=== PATIENT | female | born 1980 | race Caucasian/White ===

== ENCOUNTER 2021-07-16 21:30 | Emergency (ER) | payer MEDICARE, MEDICAID ==
[~2021-07-16] VITALS: Ht 154.9 cm; Wt 90.9 kg
[~2021-07-16 21:30] MED LIST: ALBU18HF2 INH; KEP500T PO; LEVO50TA PO; MORP30TA PO; MORP60CP14 PO; SUMA4PEN SQ; TRAZ-256 PO
[2021-07-17] MEDS ORDERED: diphenhydrAMINE 50 mg/ml inj IV ONE (02:00)
[2021-07-17] MEDS ORDERED: normal saline 1000ML IV soln IVB ONE (02:00)
[2021-07-17] MEDS ORDERED: dexamethasone sod phosphate 10mg/ml inj IV STA (02:00)
[2021-07-17] MEDS ORDERED: ketorolac tromethamine 15mg/ml inj. IV ONE (02:00)
[2021-07-17] MEDS ORDERED: SUMAtriptan succ. 6 MG/0.5ml vial SQ ONE (02:00)
[2021-07-17] MEDS ORDERED: SUMA25TA35 PO (02:55)
[2021-07-17] MEDS ORDERED: METO-292 PO (02:55)
[2021-07-17 03:40] VITALS: BP 113/67
== END 2021-07-17 03:41 | disposition home or self-care (01) ==
LOC: ER 21:31
DX: G43.909 Migraine, unspecified, not intractable, without status migrainosus (principal); R11.2 Nausea with vomiting, unspecified; J45.909 Unspecified asthma, uncomplicated; G89.29 Other chronic pain; F41.9 Anxiety disorder, unspecified; F32.9 Major depressive disorder, single episode, unspecified; Z86.69 Personal history of other diseases of the nervous system and sense organs; Z90.89 Acquired absence of other organs; Z90.49 Acquired absence of other specified parts of digestive tract; Z98.890 Other specified postprocedural states; Z60.2 Problems related to living alone; Z56.0 Unemployment, unspecified; Z88.8 Allergy status to other drugs, medicaments and biological substances; Z91.012 Allergy to eggs; Z79.899 Other long term (current) drug therapy
CPT/HCPCS: 96361; 96372; 96374; 96375; 99284; J1100; J1200; J1885; J7030; J3030

== ENCOUNTER 2021-07-27 18:22 | Emergency (ER) | payer MEDICARE, MEDICAID ==
[~2021-07-27] VITALS: Ht 154.9 cm; Wt 90.9 kg
[~2021-07-27 18:22] MED LIST changes: +METO-292 PO; +SUMA25TA35 PO
[2021-07-27] MEDS ORDERED: normal saline 1000ml 1,000 ML IV ONE ×2 (19:45)
[2021-07-27] MEDS ORDERED: LORazepam 2 mg/ml vial IV ONE (19:55)
[2021-07-27] MEDS ORDERED: ketorolac trometh. 30mg/ml inj. IV ONE (19:55)
[2021-07-27] MEDS ORDERED: morphine 4 MG/ML inj SYRINge IM ONE (20:25)
[2021-07-27] MEDS ORDERED: ondansetron 4mg rapidly disintigrating tab PO ONE (20:25)
[2021-07-27] MEDS ORDERED: dexamethasone sod phosphate 10mg/ml inj IV STA (21:13)
[2021-07-27] MEDS ORDERED: diazepam 5mg tablet PO ONE (22:20)
[2021-07-27] MEDS ORDERED: ORPH100T2 PO (22:20)
[2021-07-27 22:44] VITALS: BP 115/44
--- NOTE | 2021-07-27 22:57 | NUR ---
Pt given and understands d/c instructions. IV d/c'd, catheter was intact. Ambulatory with a slow steady gait.
== END 2021-07-27 22:45 | disposition home or self-care (01) ==
LOC: ER 18:22
DX: G44.209 Tension-type headache, unspecified, not intractable (principal); M54.2 Cervicalgia; R11.0 Nausea; G43.909 Migraine, unspecified, not intractable, without status migrainosus; G40.909 Epilepsy, unspecified, not intractable, without status epilepticus; J45.909 Unspecified asthma, uncomplicated; G89.29 Other chronic pain; Z90.49 Acquired absence of other specified parts of digestive tract; Z59.00 Homelessness unspecified; Z79.899 Other long term (current) drug therapy; Z91.012 Allergy to eggs; Z88.8 Allergy status to other drugs, medicaments and biological substances
CPT/HCPCS: 96361; 96372; 96374; 96375; 99284; J1100; J1885; J2060; J2270; J7030; 12013

== ENCOUNTER 2021-10-27 11:16 | Outpatient (CLI) | payer MEDICARE, MEDICAID ==
[~2021-10-27 11:16] MED LIST changes: +ORPH100T2 PO
[2021-10-27 12:43] LABS: BASOPHILS % (AUTO) 0.2 % (0-1); EOSINOPHILS # (AUTO) 0.1 X10'3 (0-0.9); EOSINOPHILS % (AUTO) 1.8 % (0-6); HEMATOCRIT 47.8 % (35.0-45.0); HEMOGLOBIN 15.9 g/dl (12.0-16.0); LYMPHOCYTES # (AUTO) 2.1 X10'3 (1.1-4.8); MEAN CORPUSCULAR HEMOGLOBIN 29.3 PG (27.0-31.0); MEAN CORPUSCULAR HGB CONC 33.3 g/dL (33.0-36.5); MEAN PLATELET VOLUME 8.5 FL (7.4-10.4); MONOCYTES # (AUTO) 0.5 X10'3 (0-0.9); MONOCYTES % (AUTO) 7.5 % (2-12); NEUTROPHILS # (AUTO) 4.4 X10'3 (1.8-7.7); NEUTROPHILS % (AUTO) 61.5 % (42-75); PLATELET COUNT 266 X10'3 (140-440); RED BLOOD COUNT 5.43 X10'6 (4.20-5.60); RED CELL DISTRIBUTION WIDTH 13.2 % (11.5-14.5); WHITE BLOOD COUNT 7.1 X10'3 (4.5-11.0)
[2021-10-27 13:07] LABS: ALANINE AMINOTRANSFERASE 43 U/L (12-78); ALBUMIN 3.9 G/DL (3.4-5.0); ALBUMIN/GLOBULIN RATIO 0.9 (1.1-1.5); ALKALINE PHOSPHATASE 120 IU/L (46-116); AMYLASE 54 U/L (25-115); ANION GAP 12 (8-16); BILIRUBIN,TOTAL 0.3 MG/DL (0.1-1.0); BLOOD UREA NITROGEN 15 MG/DL (7-18); BUN/CREATININE RATIO 23.8 (6.6-38.0); CALCIUM 8.9 MG/DL (8.5-10.1); CHLORIDE 104 MMOL/L (99-107); CHOL/HDL RATIO 3.4 (0.00-4.99); CHOLESTEROL 256 MG/DL (0-200); CREATININE 0.63 MG/DL (0.40-0.90); GLUCOSE 73 MG/DL (70-104); HDL CHOLESTEROL 75 MG/DL (35-60); LDL CHOLESTEROL 165 MG/DL (50-100); LIPASE 186 U/L (73-393); SODIUM 140 MMOL/L (135-145); TOTAL CARBON DIOXIDE 23.8 MMOL/L (24-32); TOTAL PROTEIN 8.1 G/DL (6.4-8.2); TRIGLYCERIDES 59 MG/DL (20-135); eGFR > 90 ML/MIN
[2021-10-27 13:08] LABS: ASPARTATE AMINO TRANSFERASE 40 U/L (10-37); POTASSIUM 4.8 MMOL/L (3.5-5.1)
[2021-10-27 13:10] LABS: HEMOGLOBIN A1C 5.9 % (4.5-6.2)
== END 2021-10-27 23:59 | disposition home or self-care (01) ==
LOC: LAB 11:16
PROVIDERS: ATTEND Family Medicine
DX: R10.13 Epigastric pain (principal); R73.9 Hyperglycemia, unspecified; E28.2 Polycystic ovarian syndrome; R53.83 Other fatigue; R56.9 Unspecified convulsions; Z51.81 Encounter for therapeutic drug level monitoring
CPT/HCPCS: 36415; 80053; 80061; 82150; 83036; 83690; 84443; 85025

== ENCOUNTER → 2022-06-12 | Emergency (ER) | payer MEDICARE, MEDICAID ==
[~2022-06-12] VITALS: Ht 154.9 cm; Wt 86.4 kg
[~2022-06-12] MED LIST changes: +LIDOcaine Viscous 15ml cup MM ONE; +SUCR1TAB34 PO; +mag hydrox/Alum hydrox/simeth 30ml oral suspension PO ONE; +morphine 4 MG/ML inj SYRINge IM ONE; +ondansetron 4mg rapidly disintigrating tab PO ONE; +sucralfate 1 gm tablet PO ONE
[2022-06-12 20:40] LABS: BASOPHILS % (AUTO) 0.4 % (0-1); EOSINOPHILS # (AUTO) 0.1 X10'3 (0-0.9); EOSINOPHILS % (AUTO) 1.2 % (0-6); HEMATOCRIT 43.2 % (35.0-45.0); HEMOGLOBIN 14.9 g/dl (12.0-16.0); LYMPHOCYTES % (AUTO) 26.1 % (21-51); MEAN CORPUSCULAR HEMOGLOBIN 29.2 PG (27.0-31.0); MEAN CORPUSCULAR HGB CONC 34.4 g/dL (33.0-36.5); MEAN CORPUSCULAR VOLUME 84.9 FL (78-98); MEAN PLATELET VOLUME 8.3 FL (7.4-10.4); MONOCYTES # (AUTO) 0.6 X10'3 (0-0.9); MONOCYTES % (AUTO) 5.5 % (2-12); NEUTROPHILS # (AUTO) 7.6 X10'3 (1.8-7.7); NEUTROPHILS % (AUTO) 66.8 % (42-75); PLATELET COUNT 259 X10'3 (140-440); RED BLOOD COUNT 5.09 X10'6 (4.20-5.60); RED CELL DISTRIBUTION WIDTH 13.2 % (11.5-14.5); WHITE BLOOD COUNT 11.3 X10'3 (4.5-11.0)
[2022-06-12 20:51] LABS: ALANINE AMINOTRANSFERASE 32 U/L (12-78); ALBUMIN 3.9 G/DL (3.4-5.0); ALKALINE PHOSPHATASE 104 IU/L (46-116); ANION GAP 11 (8-16); ASPARTATE AMINO TRANSFERASE 16 U/L (10-37); BILIRUBIN,TOTAL 0.4 MG/DL (0.1-1.0); BLOOD UREA NITROGEN 18 MG/DL (7-18); BUN/CREATININE RATIO 21.4 (6.6-38.0); CALCIUM 9.5 MG/DL (8.5-10.1); CHLORIDE 102 MMOL/L (99-107); CREATININE 0.84 MG/DL (0.40-0.90); GLUCOSE 79 MG/DL (70-104); LIPASE 160 U/L (73-393); POTASSIUM 3.9 MMOL/L (3.5-5.1); SODIUM 137 MMOL/L (135-145); TOTAL CARBON DIOXIDE 24.2 MMOL/L (24-32); eGFR 74 ML/MIN
[2022-06-12 20:54] LABS: CLARITY,URINE CLOUDY (Clear); COLOR,URINE YELLOW (Yellow); GLUCOSE, URINE NEGATIVE (Neg); KETONES,URINE NEGATIVE (Neg); LEUKOCYTE ESTERASE ,URINE SMALL (Neg); NITRITES, URINE NEGATIVE (Neg); OCCULT BLOOD,URINE SMALL (Neg); PH,URINE 5.5 (4.8-8.0); PROTEIN,URINE NEGATIVE (Neg); UROBILINOGEN,URINE 0.2 E.U/dL (0.2-1.0)
[2022-06-12 20:56] LABS: URINE HCG NEGATIVE (NEG)
[2022-06-12 21:12] LABS: UA COLLECTION TYPE VOIDED
[2022-06-12 21:14] LABS: BACTERIA,URINE 2+ /HPF (Neg); RBC,URINE 0-2 /HPF (0-2); SQUAMOUS EPITHELIAL CELL,UR MANY /LPF (FEW)
[2022-06-12 23:44] VITALS: BP 116/82
== END | disposition home or self-care (01) ==
LOC: ER 19:29
DX: R10.10 Upper abdominal pain, unspecified (principal); R11.0 Nausea; G43.909 Migraine, unspecified, not intractable, without status migrainosus; J45.909 Unspecified asthma, uncomplicated; F31.9 Bipolar disorder, unspecified; Z59.00 Homelessness unspecified; Z90.49 Acquired absence of other specified parts of digestive tract; Z88.8 Allergy status to other drugs, medicaments and biological substances; Z79.899 Other long term (current) drug therapy
CPT/HCPCS: 36415; 74176; 80053; 81001; 81025; 83690; 85025; 96372; 99284; J2270

== ENCOUNTER 2022-09-11 18:56 | Emergency (ER) | payer MEDICARE, MEDICAID ==
[~2022-09-11] VITALS: Ht 154.9 cm; Wt 89.9 kg
[~2022-09-11 18:56] MED LIST changes: -LIDOcaine Viscous 15ml cup MM ONE; -mag hydrox/Alum hydrox/simeth 30ml oral suspension PO ONE; -morphine 4 MG/ML inj SYRINge IM ONE; -ondansetron 4mg rapidly disintigrating tab PO ONE; -sucralfate 1 gm tablet PO ONE
[2022-09-11 20:00] LABS: BASOPHILS % (AUTO) 0.3 % (0-1); EOSINOPHILS # (AUTO) 0.4 X10'3 (0-0.9); HEMATOCRIT 42.4 % (35.0-45.0); HEMOGLOBIN 14.3 g/dl (12.0-16.0); LYMPHOCYTES % (AUTO) 33.7 % (21-51); MEAN CORPUSCULAR HEMOGLOBIN 28.9 PG (27.0-31.0); MEAN CORPUSCULAR HGB CONC 33.8 g/dL (33.0-36.5); MEAN CORPUSCULAR VOLUME 85.7 FL (78-98); MEAN PLATELET VOLUME 7.6 FL (7.4-10.4); MONOCYTES # (AUTO) 0.5 X10'3 (0-0.9); MONOCYTES % (AUTO) 8.3 % (2-12); NEUTROPHILS # (AUTO) 3.1 X10'3 (1.8-7.7); NEUTROPHILS % (AUTO) 51.7 % (42-75); PLATELET COUNT 257 X10'3 (140-440); RED BLOOD COUNT 4.94 X10'6 (4.20-5.60); RED CELL DISTRIBUTION WIDTH 12.5 % (11.5-14.5); WHITE BLOOD COUNT 6.1 X10'3 (4.5-11.0)
[2022-09-11 20:17] LABS: ALANINE AMINOTRANSFERASE 37 U/L (12-78); ALBUMIN 3.6 G/DL (3.4-5.0); ALBUMIN/GLOBULIN RATIO 0.8 (1.1-1.5); ALKALINE PHOSPHATASE 101 IU/L (46-116); ANION GAP 9 (8-16); ASPARTATE AMINO TRANSFERASE 18 U/L (10-37); BILIRUBIN,TOTAL 0.3 MG/DL (0.1-1.0); BLOOD UREA NITROGEN 15 MG/DL (7-18); CHLORIDE 100 MMOL/L (99-107); CREATININE 0.75 MG/DL (0.40-0.90); GLUCOSE 111 MG/DL (70-104); SODIUM 137 MMOL/L (135-145); TOTAL PROTEIN 7.9 G/DL (6.4-8.2); eGFR 84 ML/MIN
[2022-09-11] MEDS ORDERED: NIRM1TAB PO (20:50)
[2022-09-11 21:05] VITALS: BP 113/65
== END 2022-09-11 21:07 | disposition home or self-care (01) ==
LOC: ER 18:57
DX: U07.1 COVID-19 (principal); R07.89 Other chest pain; G43.909 Migraine, unspecified, not intractable, without status migrainosus; J45.909 Unspecified asthma, uncomplicated; G89.29 Other chronic pain; F41.9 Anxiety disorder, unspecified; F32.A Depression, unspecified; Z86.69 Personal history of other diseases of the nervous system and sense organs; Z90.89 Acquired absence of other organs; Z90.49 Acquired absence of other specified parts of digestive tract; Z98.890 Other specified postprocedural states; Z60.2 Problems related to living alone; Z56.0 Unemployment, unspecified; Z88.8 Allergy status to other drugs, medicaments and biological substances; Z79.899 Other long term (current) drug therapy
CPT/HCPCS: 36415; 71046; 80053; 85025; 87811; 93005; 99285

== ENCOUNTER 2023-01-03 16:46 | Emergency (ER) | payer MEDICARE, MEDICAID ==
[~2023-01-03] VITALS: Ht 154.9 cm; Wt 126.8 kg
[~2023-01-03 16:46] MED LIST changes: +NIRM1TAB PO; -ORPH100T2 PO; +ORPH100T4 PO
[2023-01-03 17:13] LABS: URINE HCG NEGATIVE (NEG)
[2023-01-03 17:14] LABS: CLARITY,URINE SLIGHTLY CLOUDY (Clear); COLOR,URINE YELLOW (Yellow); GLUCOSE, URINE NEGATIVE (Neg); KETONES,URINE NEGATIVE (Neg); LEUKOCYTE ESTERASE ,URINE NEGATIVE (Neg); NITRITES, URINE NEGATIVE (Neg); OCCULT BLOOD,URINE NEGATIVE (Neg); PH,URINE 5.5 (4.8-8.0); PROTEIN,URINE NEGATIVE (Neg); UROBILINOGEN,URINE 0.2 E.U/dL (0.2-1.0)
[2023-01-03 17:19] LABS: UA COLLECTION TYPE CLN CATCH MIDSTREAM
[2023-01-03 17:21] LABS: BACTERIA,URINE 3+ /HPF (Neg); RBC,URINE NONE SEEN /HPF (0-2); SQUAMOUS EPITHELIAL CELL,UR MODERATE /LPF (FEW)
[2023-01-03] MEDS ORDERED: ketorolac tromethamine 15mg/ml inj. IV ONE (17:30)
[2023-01-03] MEDS ORDERED: normal saline 1000ML IV soln IVB ONE (17:30)
[2023-01-03] MEDS ORDERED: ondansetron/PF 4mg/2ml inj IV ONE ×2 (17:30→19:55)
[2023-01-03] MEDS ORDERED: ketorolac trometh. 30mg/ml inj. IV ONE (17:30)
[2023-01-03 17:51] LABS: BASOPHILS % (AUTO) 0.1 % (0-1); EOSINOPHILS # (AUTO) 0.2 X10'3 (0-0.9); EOSINOPHILS % (AUTO) 2.9 % (0-6); HEMATOCRIT 41.2 % (35.0-45.0); HEMOGLOBIN 13.8 g/dl (12.0-16.0); LYMPHOCYTES # (AUTO) 0.6 X10'3 (1.1-4.8); LYMPHOCYTES % (AUTO) 7.6 % (21-51); MEAN CORPUSCULAR HEMOGLOBIN 28.3 PG (27.0-31.0); MEAN CORPUSCULAR HGB CONC 33.5 g/dL (33.0-36.5); MEAN CORPUSCULAR VOLUME 84.5 FL (78-98); MONOCYTES # (AUTO) 0.7 X10'3 (0-0.9); MONOCYTES % (AUTO) 8.2 % (2-12); NEUTROPHILS # (AUTO) 6.8 X10'3 (1.8-7.7); NEUTROPHILS % (AUTO) 81.2 % (42-75); PLATELET COUNT 222 X10'3 (140-440); RED BLOOD COUNT 4.88 X10'6 (4.20-5.60); RED CELL DISTRIBUTION WIDTH 13.4 % (11.5-14.5); WHITE BLOOD COUNT 8.4 X10'3 (4.5-11.0)
[2023-01-03 18:12] LABS: ALANINE AMINOTRANSFERASE 27 U/L (12-78); ALBUMIN 3.5 G/DL (3.4-5.0); ALBUMIN/GLOBULIN RATIO 0.9 (1.1-1.5); ALKALINE PHOSPHATASE 88 IU/L (46-116); ANION GAP 11 (8-16); ASPARTATE AMINO TRANSFERASE 20 U/L (10-37); BILIRUBIN,TOTAL 0.3 MG/DL (0.1-1.0); BLOOD UREA NITROGEN 22 MG/DL (7-18); BUN/CREATININE RATIO 27.2 (10.0-20.0); CHLORIDE 102 MMOL/L (99-107); CREATININE 0.81 MG/DL (0.40-0.90); GLUCOSE 121 MG/DL (70-104); LIPASE 216 U/L (73-393); POTASSIUM 4.2 MMOL/L (3.5-5.1); SODIUM 137 MMOL/L (135-145); TOTAL CARBON DIOXIDE 24.4 MMOL/L (24-32); TOTAL PROTEIN 7.3 G/DL (6.4-8.2); eGFR 77 ML/MIN
--- NOTE | 2023-01-03 18:38 | NUR ---
assumed care from corey perera
[2023-01-03] MEDS ORDERED: haloperidol lactate 5mg/ml inj IVH ONE (18:50)
[2023-01-03] MEDS ORDERED: ONDA4TAB12 PO (19:58)
[2023-01-03 20:56] VITALS: BP 145/80
== END 2023-01-03 20:58 | disposition home or self-care (01) ==
LOC: ER 16:47
DX: S20.102A Unspecified superficial injuries of breast, left breast, initial encounter (principal); S20.101A Unspecified superficial injuries of breast, right breast, initial encounter; R11.2 Nausea with vomiting, unspecified; R19.7 Diarrhea, unspecified; R61 Generalized hyperhidrosis; X58.XXXA Exposure to other specified factors, initial encounter; Y93.89 Activity, other specified; Y92.89 Other specified places as the place of occurrence of the external cause; Y99.8 Other external cause status
CPT/HCPCS: 36415; 80053; 81001; 81025; 83690; 85025; 87088; 96361; 96374; 96375; 96376; 99285; J1630; J1885; J2405; J7030

== ENCOUNTER 2024-11-19 23:16 | Emergency (ER) | payer MEDICARE, MEDICAID ==
[~2024-11-19] VITALS: Ht 154.9 cm; Wt 55.5 kg
[~2024-11-19 23:16] MED LIST changes: -ALBU18HF2 INH; -KEP500T PO; -LEVO50TA PO; -METO-292 PO; -MORP30TA PO; -MORP60CP14 PO; +MULT-1085 PO; +NALT50TA5 PO; -NIRM1TAB PO; +OMEP20CA15 PO; -ORPH100T4 PO; +QUET25TA36 PO; -SUCR1TAB34 PO; -SUMA25TA35 PO; -SUMA4PEN SQ; -TRAZ-256 PO
[2024-11-20 00:25] LABS: BILIRUBIN,URINE NEGATIVE (Neg); CLARITY,URINE CLOUDY (Clear); COLOR,URINE YELLOW (Yellow); GLUCOSE, URINE NEGATIVE (Neg); KETONES,URINE NEGATIVE (Neg); LEUKOCYTE ESTERASE ,URINE TRACE (Neg); NITRITES, URINE NEGATIVE (Neg); OCCULT BLOOD,URINE NEGATIVE (Neg); PH,URINE 5.5 (4.8-8.0); PROTEIN,URINE NEGATIVE (Neg); UROBILINOGEN,URINE 0.2 E.U/dL (0.2-1.0)
[2024-11-20 00:29] LABS: UA COLLECTION TYPE CLN CATCH MIDSTREAM
[2024-11-20 00:32] LABS: SQUAMOUS EPITHELIAL CELL,UR MANY /LPF (FEW)
[2024-11-20 00:33] LABS: BACTERIA,URINE 4+ /HPF (Neg); RBC,URINE NONE SEEN /HPF (0-2)
[2024-11-20 00:34] LABS: URINE HCG NEGATIVE (NEG)
[2024-11-20] MEDS: fentaNYL/PF 50MCG/1 ML 2ML syringe IV ONE (00:42)
[2024-11-20] MEDS: ondansetron/PF 4mg/2ml inj IV ONE ×2 (00:42→02:01)
[2024-11-20] MEDS: normal saline 1000ML IV soln IVB ONE (00:42)
[2024-11-20 00:54] LABS: URINE AMPHETAMINE SCREEN NEGATIVE (Neg); URINE BARBITUATE SCREEN NEGATIVE (Neg); URINE BENZODIAZEPINES SCREEN NEGATIVE (Neg); URINE CANNABINOID SCREEN NEGATIVE (Neg); URINE COCAINE SCREEN NEGATIVE (Neg); URINE METHADONE SCREEN NEGATIVE (Neg); URINE OPIATE SCREEN NEGATIVE (Neg); URINE PHENCYCLIDINE SCREEN NEGATIVE (Neg)
[2024-11-20 00:59] LABS: BASOPHILS % (AUTO) 0.2 % (0-1); EOSINOPHILS # (AUTO) 0.1 X10'3 (0-0.9); EOSINOPHILS % (AUTO) 1.3 % (0-6); HEMATOCRIT 39.9 % (35.0-45.0); HEMOGLOBIN 13.7 g/dl (12.0-16.0); LYMPHOCYTES # (AUTO) 2.3 X10'3 (1.1-4.8); LYMPHOCYTES % (AUTO) 33.3 % (21-51); MEAN CORPUSCULAR HGB CONC 34.3 g/dL (33.0-36.5); MEAN CORPUSCULAR VOLUME 84.6 FL (78-98); MEAN PLATELET VOLUME 8.2 FL (7.4-10.4); MONOCYTES # (AUTO) 0.6 X10'3 (0-0.9); MONOCYTES % (AUTO) 9.3 % (2-12); NEUTROPHILS # (AUTO) 3.9 X10'3 (1.8-7.7); NEUTROPHILS % (AUTO) 55.9 % (42-75); PLATELET COUNT 228 X10'3 (140-440); RED BLOOD COUNT 4.72 X10'6 (4.20-5.60); RED CELL DISTRIBUTION WIDTH 13.1 % (11.5-14.5)
[2024-11-20 01:04] LABS: ALANINE AMINOTRANSFERASE 21 U/L (12-78); ALBUMIN 3.6 G/DL (3.4-5.0); ALKALINE PHOSPHATASE 106 IU/L (46-116); ANION GAP 7 (8-16); ASPARTATE AMINO TRANSFERASE 12 U/L (10-37); BILIRUBIN,TOTAL 0.5 MG/DL (0.1-1.0); BLOOD UREA NITROGEN 18 MG/DL (7-18); BUN/CREATININE RATIO 29.5 (10.0-20.0); CALCIUM 8.5 MG/DL (8.5-10.1); CHLORIDE 107 MMOL/L (99-107); CREATININE 0.61 MG/DL (0.40-0.90); GLUCOSE 98 MG/DL (70-104); LIPASE 121 U/L (16-77); POTASSIUM 3.5 MMOL/L (3.5-5.1); SODIUM 140 MMOL/L (135-145); TOTAL CARBON DIOXIDE 26.3 MMOL/L (24-32); TOTAL PROTEIN 7.1 G/DL (6.4-8.2); eCRCL 88 ML/MIN; eGFR > 90 ML/MIN
[2024-11-20] MEDS: acetaminophen 1,000mg/100ml IV 100 ML IV ONE (02:04)
[2024-11-20] MEDS: normal saline 1000ml 1,000 ML IV ONE (02:40)
[2024-11-20 02:58] VITALS: BP 128/79; PULSE 75; RESP 18; O2SAT 96
[2024-11-20] MEDS ORDERED: ONDA-245 PO (03:38)
[2024-11-20] MEDS ORDERED: ACET-2615 PO (03:38)
[2024-11-20] MEDS: heparin sodium, porcine/PF 100unit/ml 5ML syringe IV ONE (03:49)
[2024-11-20 03:57] VITALS: TEMP 98
== END 2024-11-20 03:59 | disposition home or self-care (01) ==
LOC: ER 23:17
DX: K85.90 Acute pancreatitis without necrosis or infection, unspecified (principal); F17.200 Nicotine dependence, unspecified, uncomplicated; J45.909 Unspecified asthma, uncomplicated; F41.9 Anxiety disorder, unspecified; F32.A Depression, unspecified; G43.909 Migraine, unspecified, not intractable, without status migrainosus; Z90.49 Acquired absence of other specified parts of digestive tract; Z98.84 Bariatric surgery status; Z98.890 Other specified postprocedural states
CPT/HCPCS: 36415; 80053; 80305; 81001; 81025; 83690; 84145; 85025; 96361; 96365; 96375; 96376; 99284; J0131; J1642; J2405; J3010; J7030

== ENCOUNTER 2025-02-15 05:53 | Outpatient (CLI) | payer MEDICARE, MEDICAID ==
[~2025-02-15 05:53] MED LIST changes: +ONDA-245 PO
[2025-02-15] MEDS ORDERED: LIDOcaine 1% 30ml preserv. free vial ONE (06:41)
[2025-02-15] MEDS ORDERED: LIDOcaine 1%/PF 5ML 10 MG/ML VIAL ONE (06:41)
[2025-02-15] MEDS ORDERED: iohexol 300 MG/1 ML 50ml polymer ONE (06:41)
[2025-02-15] MEDS ORDERED: GADOTERATE MEGLUMINE 7.5 MMOL/15 ML VIAL IV ONE (06:42)
--- NOTE | 2025-02-15 11:24 | RADIOLOGY REPORT ---
ANGIO ARTHROGRAM (A) Date: 02/15/2025 07:34 AM Clinical History: PAIN IN right SHOULDER Comparison: None Procedure: Verbal and written informed consent were obtained from the patient for the procedure of right SHOULDE R JOINT fluoroscopically guided arthrogram, after the procedure, risks, and benefits of the procedur e were explained to the patient. Risks include bleeding, infection, reaction to injected medications , and damage to surrounding anatomic structures. The patient's questions were answered. The patient 's most recent medical history was reviewed. A time out was performed to verify the patient's name, date of , and correct location of the pro cedure, prior to initiation of the procedure. The patient tolerated the procedure well. There were no immediate complications. Home-care instruct ions were reviewed with the patient prior to the patient's discharge from the fluoroscopy suite. The patient verbally affirmed understanding of these instructions. Impression: Technically successful fluoroscopically guided right SHOULDER JOINT arthrogram. The patient was tra nsported to MRI for further imaging at the completion of the procedure. Procedure by Dr. Riddle
--- NOTE | 2025-02-15 18:39 | RADIOLOGY REPORT ---
EXAM: MR MRI UPPER EXTREMITY RIGHT INDICATION: PAIN IN RIGHT SHOULDER TECHNIQUE: Multiplanar, multisequence MR images of the right shoulder were obtained in the absence of gadolinium contrast material. COMPARISON: None FINDINGS: [CORACOACROMIAL ARCH]: Mild capsular hypertrophy of the acromioclavicular joint. Intact coracoclavicu lar ligaments. Intact coracoacromial ligaments. No subacromial/subdeltoid bursal fluid. [ROTATOR CUFF]: Question globular areas of T1/ low T2 signal of the distal supraspinatus tendon which may reflect sequelae of calcific tendonitis and/or sequelae of prior injury. Slight lateral acromial downsloping. Correlate for subacromial /subdeltoid impingement [BICEPS TENDON]: Intact without tenosynovitis. [LABRUM]: Intact. [CARTILAGE]: No measurable cartilage defect. [GLENOHUMERAL JOINT]: No intra-articular body. [BONES]: No acute fracture, osseous contusion, or aggressive focal osseous lesion. Small amount of gonzalez bcortical edema/ cystic change of the superolateral humeral head. [MUSCLES]: Normal muscle bulk of the rotator cuff muscles. [NEUROVASCULAR/LYMPH NODES]: Normal. [OTHER]: None. IMPRESSION: 1. Question globular areas of T1/ low T2 signal of the distal supraspinatus tendon which may reflect sequelae of calcific tendonitis and/or sequelae of prior injury. Slight lateral acromial downsloping. Correlate for subacromial /subdeltoid impingement
== END 2025-02-15 23:59 | disposition home or self-care (01) ==
LOC: RAD 05:53
PROVIDERS: ATTEND Family Medicine Sports Medicine
DX: M25.511 Pain in right shoulder (principal); M77.9 Enthesopathy, unspecified; M75.111 Incomplete rotator cuff tear or rupture of right shoulder, not specified as traumatic; G89.29 Other chronic pain; Z88.8 Allergy status to other drugs, medicaments and biological substances; Z79.899 Other long term (current) drug therapy
CPT/HCPCS: 23350; 73222; 77002; A9575; J2003; J3490; Q9967

== ENCOUNTER 2025-03-11 21:14 | Emergency (ER) | payer MEDICARE, MEDICAID ==
[~2025-03-11] VITALS: Ht 154.9 cm; Wt 54.5 kg
[2025-03-11 22:56] LABS: LEUKOCYTE ESTERASE ,URINE NEGATIVE (Neg); NITRITES, URINE NEGATIVE (Neg); OCCULT BLOOD,URINE TRACE-INTACT (Neg)
[2025-03-11 22:57] LABS: UA COLLECTION TYPE CLN CATCH MIDSTREAM
[2025-03-11 22:58] LABS: URINE HCG NEGATIVE (NEG)
[2025-03-11 23:02] LABS: MUCUS STRANDS FEW /LPF (Neg); SQUAMOUS EPITHELIAL CELL,UR FEW /LPF (FEW)
[2025-03-11 23:25] LABS: MEAN PLATELET VOLUME 7.7 FL (7.4-10.4); RED CELL DISTRIBUTION WIDTH 12.9 % (11.5-14.5)
[2025-03-11] MEDS: normal saline 500ml IV soln 500 ML IV SCH (23:36)
[2025-03-11 23:42] LABS: CREATININE 0.51 MG/DL (0.40-0.90); TOTAL CARBON DIOXIDE 28.1 MMOL/L (24-32); eCRCL 105 ML/MIN; eGFR > 90 ML/MIN
--- NOTE | 2025-03-11 23:45 | Physician Documentation ---
History of Present Illness ~ Chief Complaint: Abdominal Pain Stated Complaint: ABD PAIN Time Seen by MD: 23:42 Primary Medical Doctor: Dr. Ruvalcaba at [facility] Patient presents to the emergency room with chief complaint of pancreas pain. She has a abdominal pain wrapping around on her left side. She states this is how her pancreatitis usually presents. Bowel movements and urination reported to be normal. No fevers. Medication Reconciliation Allergies: Coded Allergies: prochlorperazine edisylate (Verified Allergy, Unknown, 11/19/24) prochlorperazine maleate (Verified Allergy, Unknown, 11/19/24) Scheduled Multivitamin (Multi Vitamin Daily), 1 TAB PO DAILY, (Reported) Naltrexone Hcl (Naltrexone Hcl), 1 TAB PO HS, (Reported) Omeprazole (Omeprazole), 1 CAP PO BID, (Reported) Ondansetron 8mg ODT (Ondansetron Odt), 1 TAB PO Q6H Quetiapine Fumarate (Quetiapine Fumarate), 1 TAB PO HS, (Reported) Past Medical History Past Medical History: Headache, Migraine, Seizures, Asthma, Pancreatitis, Thyroid (unspecified), Chronic Back Pain, Anxiety, Depression Past Surgical History: appendectomy, cholecystectomy, orthopedic surgeries, other Other Past Surgical History: Breast Augmentation Patient History: FH: heart disease FATHER MOTHER Alcohol Use: None Drug Use: none Lives with: Family Lives In: Home Occupation: disabled Review of Systems ROS All review of systems negative except as per HPI Physical Exam Vital Signs: Temperature: 98.0, Source: Oral, Heart Rate: 83, Respiratory Rate: 16, BP: 140/95, Pulse Oximetry: 98, Weight: 54.550 Oxygen Flow Rate: 0 Physical Exam General: Patient is sleeping and easily arousable, alert, oriented x4 in no acute distress Head: Normocephalic and atraumatic. Eyes: Conjunctival normal. EOMI. PERRL. ENT: Mucous membranes moist. Neck: Supple, trachea is midline. Chest: Clear to auscultation bilaterally without rales, rhonchi, or wheezes. There is no accessory muscle use or retractions. Cardiac: RRR without murmurs, gallops, or rubs. Abd: Soft, nondistended, nontender, mild left upper abdominal tenderness to palpation without peritonitis Progress Results/Orders Results/Orders Orders - BALJEET GARCIA MD Normal Saline 500ml Iv Soln (Sodium Chlo (03/11/25 23:25) * Miscellaneous Nursing Orders (03/11/25 23:23) Completed Orders - BALJEET GARCIA MD Hcg, Ur Ql (03/11/25 21:23) Cbc/Diff (03/11/25 21:23) BMP (03/11/25 21:23) Lipase (03/11/25 21:23) CMP (03/11/25 21:23) Ua W/Microscopic, Cult If Ind (03/11/25 21:22) Medications Received in ER Medications (Trade) Dose Ordered Sig/Obi Route PRN Reason Start Time Stop Time Status Last Admin Dose Admin Sodium Chloride 500 ml @ 20 mls/hr Q25H IV 03/11/25 23:25 03/11/25 23:36 20 MLS/HR Vital Signs 03/11/25 03/11/25 03/11/25 21:20 23:45 23:49 Temp 98.0 Pulse 83 74 Resp 16 16 16 B/P (MAP) 140/95 110/68 (82) Pulse Ox 98 98 O2 Flow Rate 0 0 Laboratory Tests Test 03/11/25 21:22 03/11/25 23:19 Urine Specimen Description Cln catch midstream Urine Color Yellow Urine Clarity Clear Urine pH 6.0 Urine Specific [place] 1.010 Urine Protein Negative Urine Glucose (UA) Negative Urine Ketones Negative Urine Occult Blood Trace-intact Urine Nitrite Negative Urine Bilirubin Negative Urine Urobilinogen 0.2 Urine Leukocyte Esterase Negative Urine RBC 3-10 Urine WBC 0-4 Urine Squamous Epithelial Cells Few Urine Bacteria None seen Urine Mucus Few Urine Culture Indicated Not ind Volume Urine Centrifuged 10 ml Urine HCG, Qualitative Negative Urine Comment White Blood Count 5.3 Red Blood Count 4.50 Hemoglobin 13.1 Hematocrit 38.1 Mean Corpuscular Volume 84.5 Mean Corpuscular Hemoglobin 29.1 Mean Corpuscular Hemoglobin Concent 34.4 Red Cell Distribution Width 12.9 Platelet Count 213 Mean Platelet Volume 7.7 Neutrophils (%) (Auto) 46.7 Lymphocytes (%) (Auto) 44.1 Monocytes (%) (Auto) 7.8 Eosinophils (%) (Auto) 1.2 Basophils (%) (Auto) 0.2 Neutrophils # (Auto) 2.5 Lymphocytes # (Auto) 2.3 Monocytes # (Auto) 0.4 Eosinophils # (Auto) 0.1 Basophils # (Auto) 0.0 CBC Comment Sodium Level 139 Potassium Level 3.5 Chloride Level 106 Carbon Dioxide Level 28.1 Anion Gap 5 L Blood Urea Nitrogen 11 Creatinine 0.51 Estimated GFR/1.73 m2 > 90 BUN/Creatinine Ratio 21.6 H Glucose Level 80 Calcium Level 8.6 Total Bilirubin 0.6 Aspartate Amino Transf (AST/SGOT) 17 Alanine Aminotransferase (ALT/SGPT) 23 Alkaline Phosphatase 74 Total Protein 6.4 Albumin 3.5 Globulin 2.9 Albumin/Globulin Ratio 1.2 Lipase 73 Chemistry Comments Medical Decision Making Findings Patient presents to the emergency room for evaluation of abdominal pain as per HPI. Differentials include but are not limited to cholecystitis pancreatitis d iverticulitis appendicitis small-bowel obstruction. Given physical exam with reassuring labs and reassuring vitals I do not feel patient requires CT scan. We will empirically treat her abdominal pain. ER precautions discussed. Departure Disposition: HOME / SELF CARE / HOMELESS Impression: Primary Impression: Abdominal pain Condition: Stable Discharge Instructions: Abdominal Pain (Nonspecific) Referrals: NO PRIMARY CARE PROVIDER (PCP) Signature Scribe Signature: No scribe Attestation: The note accurately reflects work and decisions made by me.Baljeet Garcia MD 03/11/25 23:57 BALJEET GARCIA MD Mar 11, 2025 23:45
[2025-03-12] MEDS: ketorolac trometh 15mg/ml vial 15 MG/ML ML IV ONE (00:44)
[2025-03-12] MEDS: normal saline 1000ml 1,000 ML IV ONE (00:44)
[2025-03-12] MEDS: ondansetron/PF 4mg/2ml inj IV ONE (00:44)
[2025-03-12] MEDS: morphine 4 MG/ML inj SYRINge IV ONE (00:45)
[2025-03-12] MEDS: heparin sodium, porcine/PF 100unit/ml 5ML syringe IV STA (02:06)
[2025-03-12 02:15] VITALS: BP 122/78; PULSE 80; RESP 16; TEMP 97.9; O2SAT 99
== END 2025-03-12 02:17 | disposition home or self-care (01) ==
LOC: ER 21:15
DX: K85.90 Acute pancreatitis without necrosis or infection, unspecified (principal); J45.909 Unspecified asthma, uncomplicated; G43.909 Migraine, unspecified, not intractable, without status migrainosus; F41.9 Anxiety disorder, unspecified; F32.A Depression, unspecified; Z90.49 Acquired absence of other specified parts of digestive tract; Z88.8 Allergy status to other drugs, medicaments and biological substances; Z79.899 Other long term (current) drug therapy
CPT/HCPCS: 36415; 80053; 81001; 81025; 83690; 85025; 96361; 96374; 96375; 99284; J1642; J1885; J2270; J2405; J7030; J7040

== ENCOUNTER 2025-07-19 08:56 | Emergency (ER) | payer MEDICARE, MEDICAID ==
[~2025-07-19] VITALS: Ht 154.9 cm; Wt 61.1 kg
[2025-07-19 09:01] VITALS: BP 133/88; PULSE 70; RESP 16; TEMP 98.3; O2SAT 100
[2025-07-19 09:42] LABS: URINE HCG NEGATIVE (NEG)
[2025-07-19 09:43] LABS: LEUKOCYTE ESTERASE ,URINE NEGATIVE (Neg); NITRITES, URINE NEGATIVE (Neg); OCCULT BLOOD,URINE NEGATIVE (Neg)
[2025-07-19 09:49] LABS: UA COLLECTION TYPE CLN CATCH MIDSTREAM
[2025-07-19 09:57] LABS: HYALINE CASTS 0-3 /LPF (NEGATIVE); MUCUS STRANDS FEW /LPF (Neg); SQUAMOUS EPITHELIAL CELL,UR MODERATE /LPF (FEW)
--- NOTE | 2025-07-19 10:34 | Physician Documentation ---
History of Present Illness ~ Chief Complaint: Urinary Symptoms Stated Complaint: MULTIPLE MED COMPLAINTS Time Seen by MD: 09:06 OK to notify your PCP?: Yes Primary Medical Doctor: Dr. Ruvalcaba at [facility] Source: patient Mode of Arrival: POV Exam Limitations: no limitations HPI Pt presents to ED for painful urination x 2 days. Pt also complaining of dizziness that started this AM. 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 Yesterday she ate and did not give herself a IV hydration bag in his likely dehydrated. He has any headache, vision changes, nausea, vomiting, flank pain, chest pain or shortness of breath. Medication Reconciliation Allergies: Coded Allergies: prochlorperazine edisylate (Verified Allergy, Unknown, 07/19/25) prochlorperazine maleate (Verified Allergy, Unknown, 07/19/25) Scheduled Multivitamin (Multi Vitamin Daily), 1 TAB PO DAILY, (Reported) Naltrexone Hcl (Naltrexone Hcl), 1 TAB PO HS, (Reported) Omeprazole (Omeprazole), 1 CAP PO BID, (Reported) Ondansetron 8mg ODT (Ondansetron Odt), 1 TAB PO Q6H Phenazopyridine HCl (Pyridium), 1 TAB PO Q8H Quetiapine Fumarate (Quetiapine Fumarate), 1 TAB PO HS, (Reported) Past Medical History Past Medical History: Headache, Migraine, Seizures, Asthma, Pancreatitis, Thyroid (unspecified), Chronic Back Pain, Anxiety, Depression Past Surgical History: appendectomy, cholecystectomy, orthopedic surgeries, other Other Past Surgical History: Breast Augmentation Patient History: FH: heart disease FATHER MOTHER Alcohol Use: None Drug Use: none Lives with: Family Lives In: Home Occupation: disabled Review of Systems All Other Systems at this time: Reviewed and Negative Physical Exam Vital Signs: RN Vital Signs have been reviewed: Yes, Temperature: 98.3, Source: Temporal, Heart Rate: 70, Respiratory Rate: 16, BP: 133/88, Pulse Oximetry: 100, Weight: 61.100 Oxygen Flow Rate: 0 Pulse Oximetry Reflects: adequate oxygenation Physical Exam General: Alert, no distress. HEENT: No injection, moist mucous membranes. Neck: Full range of motion. Respiratory: No respiratory distress, equal chest rise and fall. Chest: No accessory muscle use. Cardiovascular: Regular rate and rhythm. Back: No CVA tenderness Gastrointestinal: Nondistended. Extremities: Normal range of motion, no deformity. Neurologic: Oriented x4. Psychiatric: Normal mood and affect. Skin: Normal color, warm and dry. Progress Results/Orders Reviewed/noted all lab results: Yes Results/Orders Completed Orders - PORSHA COATS Hcg, Ur Ql (07/19/25 09:06) Ua W/Microscopic, Cult If Ind (07/19/25 09:19) Vital Signs 07/19/25 07/19/25 09:01 10:49 Temp 98.3 Pulse 70 Resp 16 B/P (MAP) 133/88 Pulse Ox 100 O2 Flow Rate 0 Laboratory Tests Test 07/19/25 09:19 Urine Specimen Description Cln catch midstream Urine Color Yellow Urine Clarity Slightly cloudy Urine pH 7.0 Urine Specific [place] 1.010 Urine Protein Negative Urine Glucose (UA) Negative Urine Ketones Negative Urine Occult Blood Negative Urine Nitrite Negative Urine Bilirubin Negative Urine Urobilinogen 0.2 Urine Leukocyte Esterase Negative Urine RBC 0-2 Urine WBC 0-4 Urine Squamous Epithelial Cells Moderate Urine Bacteria Few Urine Hyaline Casts 0-3 Urine Mucus Few Urine Culture Indicated Not ind Volume Urine Centrifuged 10 ml Urine HCG, Qualitative Negative Urine Comment Medical Decision Making Additional information obtaine: old records Findings Having painful urination and UTI symptoms. Urinalysis is negative for UTI. Did give some Pyridium. She took some [id number] medications to help treat her UTI which may have worked. Vital signs stable. Physical exam unremarkable. Urinary Diff Dx:Considerations: Include: Urinary Obstruction, Urolithiasis, Urinary retention, UTI Genital Diff Dx:Considerations: Include: Other Departure Disposition: 01 HOME / SELF CARE / HOMELESS Impression: Primary Impression: Dysuria Condition: Stable Discharge Instructions: Dysuria Referrals: NO PRIMARY CARE PROVIDER (PCP) Prescriptions Phenazopyridine HCl (Pyridium) 100 Mg Tablet 1 TAB PO Q8H for urinary discomfort for 2 Days, #6 TAB 0 Refills Prov: PORSHA COATS 07/19/25 Education Educated: Patient Educated regarding: diagnosis, treatment, prognosis, need for follow up Additional Comment Medical Screen Exam This patient recieved a medical screening examination. After reviewing the individual's medical complaints with presenting symptoms and performing an appropriate physical examination, it was determined that no immediate life- threatening emergency medical condition is present. This individual is also not a women having contractions. Signature Scribe Signature: . Attestation: Scribed for Porsha Coats Mammal Control Agent by Porsha Ornelas NP . 07/19/25 18:18 Parts of this note were created using [employer] voice recognition software program. While efforts were made to correct any mistakes made by this voice recognition software program, nonsensical phrases may remain in this note. In addition, there may be errors and syntax, grammar, content and spelling. PORSHA COATS CARDIOVASCULAR DISEASE SPECIALIST Jul 19, 2025 10:34
[2025-07-19] MEDS ORDERED: PHEN-824 PO (10:39)
== END 2025-07-19 10:51 | disposition home or self-care (01) ==
LOC: ER 08:57
DX: R30.0 Dysuria (principal); G89.29 Other chronic pain; G43.909 Migraine, unspecified, not intractable, without status migrainosus; F41.9 Anxiety disorder, unspecified; F32.A Depression, unspecified; Z87.19 Personal history of other diseases of the digestive system; Z90.49 Acquired absence of other specified parts of digestive tract; Z79.899 Other long term (current) drug therapy; Z88.8 Allergy status to other drugs, medicaments and biological substances
CPT/HCPCS: 81001; 81025; 99283